=== PATIENT | female | born 1990 | race Caucasian/White ===

== ENCOUNTER 2016-12-04 18:04 | Emergency (ER) | payer OTHER ==
[~2016-12-04] VITALS: Ht 165.1 cm; Wt 95.9 kg
[~2016-12-04 18:04] MED LIST: PENI500T PO
[2016-12-04 18:21] VITALS: BP 147/94; PULSE 94; RESP 20; TEMP 99.6; O2SAT 100
[2016-12-04] MEDS ORDERED: PREN29TA PO (19:32)
[2016-12-04 20:30] VITALS: BP 140/84; PULSE 88; RESP 18; O2SAT 98
--- NOTE | 2016-12-04 21:02 | PD ---
HPI Chief Complaint: GI Complaint Time Seen by Provider: 20:20 Travel History International Travel<30 days: No Contact w/Intl Traveler<30days: No Traveled to known affect area: No History of Present Illness HPI 26yo F with PMH of childhood asthma who is 9 weeks here with 2 complaints. Pt is mainly here because she has sharp lower abdominal pain and nausea today. Pt has also had chest congestion with midsternal chest tightness and sob for 1 month. States she just got over a cold. Denies any fever, cough, vomiting, vaginal bleeding or discharge, dysuria, hematuria, focal weakness or numbness. PFSH Past Medical History Asthma: Yes Diminished Hearing: No Genitourinary: Yes (UTI'S WITH PREG) Hypertension: Yes (HX PRE-ECLAMPSIA) Immunizations Current: Yes Tetanus Vaccination: > 5 Years Influenza Vaccination: No ?: LMP: SEPTEMBER 29 : 3 Para: 2 Past Surgical History Section: Yes (X2) Social History Alcohol Use: No Tobacco Use: No Substance Use: No Allergies-Medications (Allergen,Severity, Reaction): Coded Allergies: No Known Allergies (Verified , 12/04/16) Reported Meds & Prescriptions Reported Meds & Active Scripts Active Reported Plus Iron 29-1 mg ( Vit-Iron Carbonyl) 29 Mg Iron-1 Mg Tab 1 Tab PO DAILY Review of Systems Except as stated in HPI: all other systems reviewed are Neg Physical Exam Narrative GENERAL: 26yo F not in distress. SKIN: Focused skin assessment warm/dry. HEAD: Atraumatic. Normocephalic. EYES: Pupils equal and round. No scleral icterus. No injection or drainage. ENT: No nasal bleeding or discharge. Mucous membranes pink and moist. NECK: Trachea midline. No JVD. CARDIOVASCULAR: Regular rate and rhythm. No murmur appreciated. RESPIRATORY: No accessory muscle use. Clear to auscultation. Breath sounds equal bilaterally. GASTROINTESTINAL: Abdomen soft, mild ttp suprapubic region. No rebound tenderness or guarding. PELVIC: Small amount of white discharge, likely physiologic. No bleeding. Cervical os closed. No CMT or adnexal tenderness bilaterally. MUSCULOSKELETAL: No obvious deformities. No clubbing. No cyanosis. No edema. NEUROLOGICAL: Awake and alert. No obvious cranial nerve deficits. Motor grossly within normal limits. Normal speech. PSYCHIATRIC: Appropriate mood and affect; insight and judgment normal. Data Data Last Documented VS Vital Signs Date Time Temp Pulse Resp B/P (MAP) Pulse Ox O2 Delivery O2 Flow Rate FiO2 12/04/16 23:50 12/04/16 22:19 98.2 84 17 100 Room Air Orders Orders Electrocardiogram (12/04/16 20:35) Basic Metabolic Panel (Bmp) (12/04/16 20:35) Complete Blood Count With Diff (12/04/16 20:35) Prothrombin Time / Inr (Pt) (12/04/16 20:35) Act Partial Throm Time (Ptt) (12/04/16 20:35) Troponin I (12/04/16 20:35) Beta Hcg (Quant/Titer) (12/04/16 20:35) Urinalysis - C+S If Indicated (12/04/16 20:35) Gc And Chlamydia Pcr (12/04/16 21:17) Wet Prep Profile (12/04/16 21:17) Acetaminophen (Tylenol) (12/04/16 21:30) Ondansetron Inj (Zofran Inj) (12/04/16 21:30) Sodium Chlor 0.9% 1000 Ml Inj (Ns 1000 M (12/04/16 22:30) Us Pelvis (Ques Pr/Ect)W Trans (12/04/16 ) Labs Laboratory Tests Test 12/04/16 21:00 12/04/16 22:10 White Blood Count 13.3 TH/MM3 Red Blood Count 5.81 MIL/MM3 Hemoglobin 14.3 GM/DL Hematocrit 43.6 % Mean Corpuscular Volume 75.0 FL Mean Corpuscular Hemoglobin 24.7 PG Mean Corpuscular Hemoglobin Concent 32.9 % Red Cell Distribution Width 13.6 % Platelet Count 272 TH/MM3 Mean Platelet Volume 7.4 FL Neutrophils (%) (Auto) 85.3 % Lymphocytes (%) (Auto) 8.9 % Monocytes (%) (Auto) 3.9 % Eosinophils (%) (Auto) 0.7 % Basophils (%) (Auto) 1.2 % Neutrophils # (Auto) 11.3 TH/MM3 Lymphocytes # (Auto) 1.2 TH/MM3 Monocytes # (Auto) 0.5 TH/MM3 Eosinophils # (Auto) 0.1 TH/MM3 Basophils # (Auto) 0.2 TH/MM3 CBC Comment AUTO DIFF Differential Comment AUTO DIFF CONFIRMED Ovalocytes 1+ Prothrombin Time 10.7 SEC Prothromb Time International Ratio 1.0 RATIO Activated Partial Thromboplast Time 27.5 SEC Urine Color YELLOW Urine Turbidity CLEAR Urine pH 5.5 Urine Specific Grawn 1.032 Urine Protein 100 mg/dL Urine Glucose (UA) NEG mg/dL Urine Ketones 15 mg/dL Urine Occult Blood NEG Urine Nitrite NEG Urine Bilirubin NEG Urine Leukocyte Esterase NEG Urine RBC 0-3 /hpf Urine WBC 3-5 /hpf Urine Squamous Epithelial Cells 0-5 /hpf Urine Mucus MANY /lpf Microscopic Urinalysis Comment CULT NOT INDICATED Blood Urea Nitrogen 10 MG/DL Creatinine 0.68 MG/DL Random Glucose 92 MG/DL Calcium Level 8.6 MG/DL Sodium Level 137 MEQ/L Potassium Level 3.5 MEQ/L Chloride Level 104 MEQ/L Carbon Dioxide Level 23.2 MEQ/L Anion Gap 10 MEQ/L Estimat Glomerular Filtration Rate 105 ML/MIN Troponin I LESS THAN 0.02 NG/ML Human Chorionic Gonadotropin, Quant 030820 MIU/ML Clue Cells (Wet Prep) NONE SEEN Vaginal Trichomonas (Wet Prep) NONE SEEN Vaginal Yeast (Wet Prep) NONE SEEN Chlamydia trachomatis DNA (PCR) NOT DETECTED Neisseria gonorrhoeae DNA (PCR) NOT DETECTED MDM Medical Decision Making Medical Screen Exam Complete: Yes Emergency Medical Condition: Yes Interpretation(s) EKG: NSR 89bpm. Normal axis. TWI III. Differential Diagnosis Cystitis vs. GERD vs. musculoskeletal pain vs. pericarditis vs. pneumonia Narrative Course 26yo F with lower abdominal pain and nausea today. Pt had an ultrasound this 2 weeks ago and said there was an IUP at 7 weeks. Pt is refusing CXR and VQ scan at this time. Low suspicion for PE since pt is saturating at 100% and HR is in the 80s. Only risk factor is . Discussed risk and benefits of VQ scan to r/o PE and pt decided not to do it. Labs reviewed, mild leukocytosis at 13.3. Troponin negative. bHCG [id number]. UA showed 100 protein, ketone 15. Will have pt follow up with OBGYN. Pt given zofran and acetaminophen with improvement of pain. Pelvic US showed probable old subchorionic hemorrhage. Viable intrauterine with estimated gestational age of 9 weeks 5days. Return precautions given. There was issues with the EMR during pt's discharge and a prescription for zofran was hand written and given to the patient. Diagnosis Primary Impression: Abdominal pain Qualified Codes: R10.9 - Unspecified abdominal pain Patient Instructions: General Instructions Departure Forms: Tests/Procedures Additional Instructions: Please follow up with your OBGYN in 3-7 days. Return to the ED if symptoms worsen. Med/Other Pt SpecificInfo: Prescription(s) given Disposition: 01 DISCHARGE HOME Condition: Stable Shea Willis DO Dec 04, 2016 21:02
[2016-12-04 21:03] LABS: AUTOMATED NEUTROPHIL # 11.3 TH/MM3 (1.8-7.7); BASOPHIL # 0.2 TH/MM3 (0-0.2); BASOPHIL % 1.2 % (0.0-2.0); EOSINOPHIL # 0.1 TH/MM3 (0-0.4); EOSINOPHIL % 0.7 % (0.0-4.0); HEMATOCRIT 43.6 % (35.0-46.0); LYMPH % 8.9 % (9.0-44.0); LYMPHOCYTE # 1.2 TH/MM3 (1.0-4.8); MEAN CORPUSCULAR HEMOGLOBIN 24.7 PG (27.0-34.0); MEAN CORPUSCULAR HGB CONC 32.9 % (32.0-36.0); MONO % 3.9 % (0.0-8.0); NEUT % 85.3 % (16.0-70.0); PLATELET COUNT 272 TH/MM3 (150-450); RED BLOOD COUNT 5.81 MIL/MM3 (4.00-5.30); RED CELL DISTRIBUTION WIDTH 13.6 % (11.6-17.2); WHITE BLOOD COUNT 13.3 TH/MM3 (4.0-11.0)
[2016-12-04 21:04] LABS: BLOOD, URINE NEG (NEG); GLUCOSE,URINE NEG (NEG); KETONE, URINE 15 mg/dL (NEG); NITRITE,URINE NEG (NEG); PH, URINE 5.5 (5.0-8.5)
[2016-12-04 21:05] LABS: HEMO FLAGS AUTO DIFF
[2016-12-04 21:09] LABS: URINE COLOR YELLOW (YELLW/STRAW)
[2016-12-04 21:10] LABS: COMMENT2 (UR) CULT NOT INDICATED; MUCUS URINE MANY /lpf (OCC); RBC, URINE 0-3 /hpf (0-3); SQUAMOUS EPITHELIAL CELL URINE 0-5 /hpf (0-5)
[2016-12-04 21:11] LABS: CHLORIDE 104 MEQ/L (98-107); POTASSIUM 3.5 MEQ/L (3.5-5.1); SODIUM (NA) 137 MEQ/L (136-145)
[2016-12-04 21:14] LABS: ANION GAP 10 MEQ/L (5-15); BICARBONATE 23.2 MEQ/L (21.0-32.0)
[2016-12-04 21:15] LABS: BLOOD UREA NITROGEN 10 MG/DL (7-18)
[2016-12-04 21:16] LABS: APTT (PATIENT) 27.5 SEC (24.3-30.1); PROTHROMBIN TIME - PATIENT 10.7 SEC (9.8-11.6)
[2016-12-04 21:18] LABS: GLOMERULAR FILTRATION RATE 105 ML/MIN (>89)
[2016-12-04] MEDS ORDERED: ACETAMINOPHEN 325 MG TAB PO ONE (21:30)
[2016-12-04] MEDS ORDERED: ONDANSETRON HCL 4 MG/2 ML VIAL IV PUSH ONE (21:30)
[2016-12-04 21:35] LABS: BETA HCG QUANT 106495 MIU/ML (0-5)
[2016-12-04 21:40] LABS: OVALOCYTES 1+ (NORMAL); SCAN/DIFF AUTO DIFF CONFIRMED
[2016-12-04 22:19] VITALS: BP 142/83; PULSE 84; RESP 17; TEMP 98.2; O2SAT 100
[2016-12-04] MEDS ORDERED: SODIUM CHLOR 0.9% 1000 ML INJ 1,000 ML IV ONE (22:30)
--- NOTE | 2016-12-05 03:25 | RADRPT ---
EXAM DATE/TIME: 12/04/2016 22:36 CORRECTION Corrected on: December 05, 2016; added with transvag to header [place] COMPARISON: No previous studies available for comparison. INDICATIONS : Pelvic pain. Nausea. LAB(S): Beta-hC,495 MEDICAL HISTORY : . Pre-eclampsia. Asthma. Urinary tract infection. SURGICAL HISTORY : section. ENCOUNTER: Initial ACUITY: 1 day PAIN SCORE: 10/10 LOCATION: Bilateral pelvis MEASUREMENTS: UTERUS: 10.0 x 6.5 x 7.0 cm ENDOMETRIAL STRIPE: >20 mm RIGHT OVARY: 3.6 x 2.8 x 2.2 cm LEFT OVARY: 2.7 x 1.2 x 1.3 cm FREE FLUID: Yes posterior cul de sac CROWN RUMP LENGTH: 2.9 cm = 9 WKS 5 DAYS FHR: 179 BPM FINDINGS: UTERUS: Uterus shows homogeneous echotexture. Intrauterine fundal gestational sac measures 3.5 x 4.9 x 3.0 cm corresponding to a gestational age of 9 weeks. pole is identified measuring 2.9 cm in length c orresponding to a gestational age of 9 weeks and 5 days. heart motions are identified at 179 be ats per minute. There is a complex, 1.6 x 0.8 x 2.4 cm subchorionic crescentic area probably represen ting a old subchorionic hemorrhage. Multiple cystic structures in the region of the cervix are charac teristic of small nabothian cysts. RIGHT OVARY: Probable 2.2 cm corpus luteum in the right ovary. Otherwise sonographically intact LEFT OVARY: Ovary contains no mass or significant cystic lesion. MISCELLANEOUS: Trace fluid in the posterior cul-de-sac. CONCLUSION: 1. Probable old 1.6 x 0.8 x 2.4 cm subchorionic hemorrhage. 2. Viable intrauterine with an estimated gestational age of 9 weeks and 5 days. 3. Probable corpus luteum in the right ovary. 4. Trace free fluid in the cul-de-sac. Ceferino Phillips MD on December 04, 2016 at 23:41 Board Certified Radiologist. This report was verified electronically.
[2016-12-05 05:31] LABS: COMMENT (UR) CULT NOT INDICATED; CULTURE IF INDICATED CULT NOT INDICATED
[2016-12-05 05:35] LABS: CHLAMYDIA PCR NOT DETECTED (NOT DETECT); NEISSERIA PCR NOT DETECTED (NOT DETECT)
--- NOTE | 2016-12-05 12:25 | EKG ---
Date Performed: 12/04/2016 Time Performed: 20:45:23 PTAGE: 26 years EKG: Sinus rhythm POSSIBLE LEFT ATRIAL ENLARGEMENT NONSPECIFIC ST & T-WAVE ABNORMALITY CANNOT EXCLUDE ACUTE INFERIOR I NJURY CLINICAL CORRELATION IS RECOMMENDED THERE IS VARIATION IN THE ST-T WAVES COMPARED TO THE PRIOR TRACING. BORDERLINE ECG PREVIOUS TRACING : 06/20/2006 03.04 DOCTOR: Greg Zimmerman Interpretating Date/Time 12/05/2016 12:24:02
== END 2016-12-04 23:50 | disposition home or self-care (01) ==
LOC: PHED 18:04
DX: O26.891 Other specified pregnancy related conditions, first trimester (principal); R10.9 Unspecified abdominal pain; R94.31 Abnormal electrocardiogram [ECG] [EKG]; D72.829 Elevated white blood cell count, unspecified; R11.0 Nausea; R07.89 Other chest pain; R06.02 Shortness of breath; O16.1 Unspecified maternal hypertension, first trimester; Z87.09 Personal history of other diseases of the respiratory system; Z87.448 Personal history of other diseases of urinary system; Z3A.09 9 weeks gestation of pregnancy
CPT/HCPCS: 76700; 76817; 80048; 81001; 84484; 84702; 85025; 85610; 85730; 87210; 87491; 87591; 93005; 96361; 96374; 99285; J2405; J7030

== ENCOUNTER 2017-08-22 10:59 | Emergency (ER) | payer MEDICAID, OTHER ==
[~2017-08-22 10:59] MED LIST changes: -PENI500T PO; +PREN29TA PO
[2017-08-22 11:05] VITALS: BP 174/100; PULSE 111; RESP 20; TEMP 98.8; O2SAT 98
--- NOTE | 2017-08-22 11:42 | PD ---
HPI Chief Complaint: ENT Complaint Time Seen by Provider: 11:26 Travel History International Travel<30 days: No Contact w/Intl Traveler<30days: No Traveled to known affect area: No History of Present Illness HPI 27-year-old female presents emergency department for evaluation of a sore throat , body aches, congestion that started yesterday. Says that this morning she woke up and she had more intense body aches and sore throat so she decided to come in for evaluation. Says that she is currently breast-feeding is concerned about giving her baby an infection. She denies fevers although she has had some chills with sweats. Denies sore throat or trouble swallowing. Denies shortness of breath or chest pain. Denies cough. She has no other complaints today. PFSH Past Medical History Asthma: Yes Diminished Hearing: No Genitourinary: Yes (UTI'S WITH PREG) Hypertension: Yes (HX PRE-ECLAMPSIA) Immunizations Current: Yes ?: Not LMP: 5 WEEKS AGO : 3 Para: 2 Past Surgical History Section: Yes (X2) Social History Alcohol Use: No Tobacco Use: No Substance Use: No Allergies-Medications (Allergen,Severity, Reaction): Coded Allergies: No Known Allergies (Verified Adverse Reaction, Unknown, 08/22/17) Reported Meds & Prescriptions Reported Meds & Active Scripts Active Amoxicillin Liq (Amoxicillin) 250 Mg/5 Ml Susp 500 Mg PO BID 10 Days Review of Systems Except as stated in HPI: all other systems reviewed are Neg Physical Exam Narrative GENERAL: Well-nourished, well-developed patient, in NAD SKIN: Focused skin assessment warm/dry. No rashes or lesions. HEAD: Normocephalic. Atraumatic. EYES: No scleral icterus. No injection or drainage. PERRLA, EOMI THROAT: No pharyngeal injection, exudates. tonsillar hypertrophy present. Airway is patent. No peritonsillar bulging NECK: Supple, trachea midline. No JVD or lymphadenopathy. No meningismus. CARDIOVASCULAR: Regular rate and rhythm without murmurs, gallops, or rubs. RESPIRATORY: Breath sounds equal bilaterally. No accessory muscle use. No wheezes, rales, or rhonchi MUSCULOSKELETAL: No cyanosis, or edema. BACK: Nontender without obvious deformity. No CVA tenderness. Data Data Last Documented VS Vital Signs Date Time Temp Pulse Resp B/P (MAP) Pulse Ox O2 Delivery O2 Flow Rate FiO2 08/22/17 11:05 98.8 111 20 174/100 (124) 98 Orders Orders Group A Rapid Strep Screen (08/22/17 11:38) Influenzae A/B Antigen (08/22/17 11:38) Ed Discharge Order (08/22/17 12:23) MDM Medical Decision Making Medical Screen Exam Complete: Yes Emergency Medical Condition: Yes Differential Diagnosis Strep pharyngitis, viral pharyngitis, influenza Narrative Course 27-year-old female presents emergency department for evaluation of a sore throat , body aches, congestion that started yesterday. Says that this morning she woke up and she had increased body aches and more sore throat since she decided to come in for evaluation. Says that she is currently breast-feeding is concerned about giving her baby infection. She denies fevers although she has had some chills with sweats. Denies sore throat or trouble swallowing. Denies shortness of breath or chest pain. She has no other complaints today. Vital signs are stable. Patient has mild tachycardia at 111. Flu negative. Strep positive. Patient will be treated with amoxicillin. Advised to follow with the primary care physician. Advised that baby may have loose stools or rash as a result of amoxicillin. Avoid contact with others until infection is cleared. Diagnosis Primary Impression: Pharyngitis Qualified Codes: J02.9 - Acute pharyngitis, unspecified Referrals: Primary Care Physician Additional Instructions: You use Tylenol for aches and pains. Ensure adequate fluid intake and proper nutrition. Use salt water gargles for symptom relief. Take all antibiotics as prescribed. Continue to drink plenty of fluids with good oral intake. You may use Tylenol or Motrin per package instructions for fever or pain. Follow-up with primary care physician within 2-3 days. If your symptoms persist or worsen return to the emergency department. Scripts Amoxicillin Liq (Amoxicillin Liq) 250 Mg/5 Ml Susp 500 MG PO BID for Infection for 10 Days, #200 ML 0 Refills Prov: Khushboo Sarmiento MD 08/22/17 Disposition: 01 DISCHARGE HOME Condition: Stable Marilyn Costa Aug 22, 2017 11:42
[2017-08-22] MEDS ORDERED: AMOX500T PO (12:23)
[2017-08-22] MEDS ORDERED: AMOX250S2 PO (12:27)
== END 2017-08-22 12:31 | disposition home or self-care (01) ==
LOC: PHEFT 10:59
DX: J02.0 Streptococcal pharyngitis (principal); J45.909 Unspecified asthma, uncomplicated; I10 Essential (primary) hypertension
CPT/HCPCS: 87804; 87880; 99283